=== PATIENT | female | born 1990 | race American Indian/Alaskan Native ===

== ENCOUNTER 2017-03-16 00:30 | Emergency (ER) | payer OTHER ==
[2017-03-16 01:55] VITALS: BP 113/68
== END 2017-03-16 02:00 | disposition left against medical advice (07) ==
LOC: ED 00:30
DX: Z04.1 Encounter for examination and observation following transport accident (principal); Z53.21 Procedure and treatment not carried out due to patient leaving prior to being seen by health care provider